=== PATIENT | male | born 1950 | race Caucasian/White ===

== ENCOUNTER 2024-11-12 11:47 | Emergency (ER) | payer OTHER, MEDICARE ==
[~2024-11-12] VITALS: Ht 182.9 cm; Wt 86.2 kg
--- NOTE | 2024-11-12 12:20 | HMCIMG ---
WRIST COMP 3+VWS LT HISTORY: Thumb pain COMPARISON: None TECHNIQUE: 3 images of the left wrist were obtained. FINDINGS: There is no acute displaced fracture or dislocation. Radiocarpal joint space narrowing is seen. Degenerative changes are seen. IMPRESSION: 1. Findings as described above.
--- NOTE | 2024-11-12 12:20 | HMCIMG ---
FINGER(S) 2+VWS LT HISTORY: Pain COMPARISON: None TECHNIQUE: 3 images of the left thumb were obtained. FINDINGS: There is no acute displaced fracture or dislocation. There is soft tissue swelling. Degenerative changes are seen. IMPRESSION: 1. Findings as described above.
--- NOTE | 2024-11-12 12:24 | ERN ---
General Chief Complaint: Hand Problem/Injury Stated Complaint: LEFT HAND INJURY Time Seen by MD: 11:50 Source: patient History of Present Illness Initial Comments PATIENT IS A 74-YEAR-OLD MALE COMING IN TO BE EVALUATED FOR LEFT THUMB PAIN. PATIENT STATES THAT THE PAIN BEGAN A WEEK AGO. HE STATES THAT PROGRESSIVELY HAS BEEN GETTING WORSE. HE WAS HERE FOR FURTHER EVALUATION. HE STATES THAT THE PAIN IS EXACERBATED WITH MOVEMENT. Allergies: Coded Allergies: No Known Drug Allergies (Unverified Allergy, Unknown, 11/12/24) Past Medical History Past Medical History: No Pertinent History Past Surgical History: None ROS Dictation CONSTITUTIONAL: NO CHILLS, NO FEVER, NO WEAKNESS, NO DIAPHORESIS, NO MALAISE. HEAD/FACE: NO SIGNS OF TRAUMA. EENT: NO EYE PAIN, NO BLURRED VISION, NO TEARING, NO DOUBLE VISION, NO EAR PAIN, NO EAR DISCHARGE, NO NOSE PAIN, NO NASAL CONGESTION, NO THROAT PAIN, NO THROAT SWELLING, NO MOUTH PAIN. RESPIRATORY: NO COUGH, NO ORTHOPNEA, NO SOB, NO STRIDOR, NO WHEEZING. CARDIOVASCULAR: NO CHEST PAIN, NO EDEMA, NO PALPITATIONS, NO SYNCOPE. GASTROINTESTINAL/ABDOMINAL: NO ABDOMINAL PAIN, NO CONSTIPATION, NO DIARRHEA, NO NAUSEA, NO VOMITING. GENITOURINARY: NO ABNORMAL DISCHARGE, NO DYSURIA, NO FREQUENT URINATION, NO HEMATURIA. NO COMPLAINTS OF PAIN IN THE GENITALS. MUSCULOSKELETAL: NO BACK PAIN, NO GOUT, JOINT PAIN, JOINT SWELLING, NO MUSCLE PAIN, NO MUSCLE STIFFNESS, NO NECK PAIN. INTEGUMENTARY: NO CHANGE IN COLOR, NO CHANGE IN HAIR/NAILS, NO DRYNESS, NO LESION, NO LUMPS, NO RASH. NEUROLOGICAL/PSYCH: NO ANXIETY, NOT DEPRESSED, NO EMOTIONAL PROBLEM, NO HEADACHE, NO NUMBNESS, NO PRE-EXISTING DEFICIT, NO HISTORY OF SEIZURES, NO TREMORS, NO WEAKNESS. HEMATOLOGIC/LYMPHATIC: NOT ANEMIC, NO HISTORY OF BLOOD CLOTS, NO APPARENT BLEEDING, NO BRUISING, GLANDS NOT SWOLLEN. ALL SYSTEMS NEGATIVE, EXCEPT NOTED. Physical Exam Physical Exam Dictation VITAL SIGNS: REVIEWED. GENERAL APPEARANCE: ALERT, ORIENTED X3, NO ACUTE DISTRESS, OBESE. HEAD AND FACE: NON-TRAUMATIC. EYES: PERRL, PINK CONJUNCTIVAS, EYELID NO TRAUMA, ANTERIOR CHAMBER CLEAR. EARS: PINNAS INTACT AND NO SIGNS OF TRAUMA OR ERYTHEMA. EAR CANALS CLEAR AND NO DISCHARGE. TMS NO ERYTHEMA. NOSE: NO DISCHARGE, NO BLEEDING. OROPHARYNX: MOUTH NORMAL, TEETH NO CARIES, TONGUE PINK. PHARYNX CLEAR, NO ERYTHEMA. TONSILS NO EXUDATES, NO ABSCESSES NOTED. MUCOUS MEMBRANE MOIST. NECK: SUPPLE, NON-TENDER, NO THYROMEGALY, NO MASSES, NO JVD, NO BRUITS. BREAST: DEFERRED. CHEST: NO TENDERNESS, NO CREPITUS, NO PARADOXICAL MOVEMENT, NO RETRACTIONS. LUNGS: CLEAR, WELL-VENTILATED, SYMMETRIC, NO RALES, NO WHEEZING, NO RHONCHI, NO STRIDOR, GOOD BREATH SOUNDS BILATERALLY. HEART: REGULAR RATE, REGULAR RHYTHM, NO MURMUR, NO GALLOPS. VASCULAR: NO PERIPHERAL EDEMA. ABDOMEN: SOFT, POSITIVE BOWEL SOUNDS, NONDISTENDED, NO GUARDING, NONTENDER, NO REBOUND, NO MASSES NO HEPATOMEGALY, NO SPLENOMEGALY, NO TYLER'S SIGN, NO HERNIAS. RECTAL: DEFERRED. GENITAL: DEFERRED. NEUROLOGICAL: NORMAL SPEECH, GROSS MOTOR FUNCTION INTACT, GROSS SENSORY FUNCTION INTACT. MUSCULOSKELETAL: NECK NONTENDER, FULL RANGE OF MOTION, BACK NONTENDER, FULL RANGE OF MOTION. EXTREMITIES: NONTENDER, FULL RANGE OF MOTION. LEFT HAND 1ST DIGIT TENDERNESS AT THE BASE ON PALPATION MILD SWELLING, ECCHYMOSIS, SKIN: COLOR PINK, DRY, NO TURGOR, NO RASH, NO LACERATIONS, NO ABRASIONS, NO CONTUSIONS. LYMPHATICS: DEFERRED. Results Laboratory and Microbiology Labs Reviewed?: Yes EKG/XRAY/US/CT/MRI X-RAY Comment [place] [address] [place] [id number] IMAGING REPORT Signed PATIENT: SERINA VAZQUEZ MR#: [id number] : 1950 SEX: M AGE: 74 LOCATION: ED ORDER 1154 STATUS: REG REPORT#: [id number] SERVICE 1152 REASON: THUMB PAIN ORDERING PHYSICIAN: GASPER FISH MD PROCEDURE: FINGER LT - FINGER(S) 2+VWS LT FINGER(S) 2+VWS LT HISTORY: Pain COMPARISON: None TECHNIQUE: 3 images of the left thumb were obtained. FINDINGS: There is no acute displaced fracture or dislocation. There is soft tissue swelling. Degenerative changes are seen. IMPRESSION: 1. Findings as described above. DICTATED BY: JUAN MATIAS MD DATE: 11/12/241216 ELECTRONICALLY SIGNED BY: JUAN MATIAS MD DATE: 11/12/24 122 [facility] [address] [place] [address] IMAGING REPORT Signed PATIENT: SERINA VAZQUEZ MR#: [id number] : 1950 SEX: M AGE: 74 LOCATION: EDH ORDER 1154 STATUS: [facility] REPORT#: [id number] SERVICE 115 REASON: THUMB PAIN ORDERING PHYSICIAN: GASPER FISH MD PROCEDURE: WRST 3V LT - WRIST COMP 3+VWS LT WRIST COMP 3+VWS LT HISTORY: Thumb pain COMPARISON: None TECHNIQUE: 3 images of the left wrist were obtained. FINDINGS: There is no acute displaced fracture or dislocation. Radiocarpal joint space narrowing is seen. Degenerative changes are seen. IMPRESSION: 1. Findings as described above. DICTATED BY: JUAN MATIAS MD DATE: 11/12/241216 ELECTRONICALLY SIGNED BY: JUAN MATIAS MD DATE: 11/12/24 1220 [facility] MDM: DIFFERENTIAL DIAGNOSIS: PHALANX FRACTURE, SCAPHOID FRACTURE, RATIONALE: TESTS CONSIDERED AND ORDERED SECONDARY TO SHARED DECISION MAKING INCLUDE: PREVIOUS OUTSIDE RECORDS REVIEWED: OLD ER VISITS. RISK OF COMPLICATION AND/OR MORBIDITY OR MORTALITY OF PATIENT MANAGEMENT: NONE MEDICATIONS-PER MEDICATION RECONCILIATION NEED FOR HOSPITALIZATION: PATIENT DOES NOT MEET CRITERIA FOR HOSPITALIZATION. PATIENT IS A 74-YEAR-OLD MALE COMING IN TO BE EVALUATED FOR LEFT HAND PAIN. ON PHYSICAL EXAM THERE IS TENDERNESS TO THE ANATOMICAL SNUFFBOX WELL THE BASE OF THE 1ST DIGIT. X-RAY DID NOT DISCLOSE ACUTE FINDINGS BUT THUMB SPICA WAS PLACED. PATIENT WAS ADVISED APPROPRIATE FOLLOW UP WITH MANAGER PHYSICAL IN 1-2 DAYS FOR ONGOING EVALUATION AND MANAGEMENT. ED Course Orders Procedure Category Date Status Time Thumb Spica SHAY.ER 11/12/24 In Process 11:52 Finger(S) 2+Vws Lt RAD 11/12/24 Resulted 11:52 Wrist Comp 3+Vws Lt RAD 11/12/24 Resulted 11:52 Vital Signs Date Time Temp Pulse Resp B/P (MAP) Pulse Ox O2 Delivery O2 Flow Rate FiO2 11/12/24 11:52 98.1 104 16 126/83 100 Room Air DX & DISP Disposition: Discharge Departure Impression: Primary Impression: Thumb fracture Additional Impression: Scaphoid fracture Condition: Stable Scripts Naproxen (Naproxen) 500 Mg Tablet 1 TAB PO BID for pain for 7 Days, #14 TAB 0 Refills Prov: GASPER FISH MD 11/12/24 Additional Instructions: FOLLOW-UP WITH PRIMARY CARE PROVIDER IN 1 TO 2 DAYS. TAKE MEDICATIONS DIRECTED HERE IN THE EMERGENCY ROOM. OKAY TO CONTINUE HOME MEDICATIONS UNLESS OTHERWISE DISCUSSED DURING YOUR VISIT IN THE EMERGENCY ROOM TODAY. RETURN TO YOUR NEAREST EMERGENCY ROOM IF SYMPTOMS WORSEN OR IF THERE IS NO IMPROVEMENT. CALL 911 IF YOU NEED IMMEDIATE ASSISTANCE. TAKE TYLENOL [id number] NEEDED AND IF NO CONTRAINDICATIONS ARE PRESENT. INCREASE ORAL HYDRATION. A WOUND CULTURE OR URINE CULTURE WAS ORDERED HERE IN THE EMERGENCY ROOM DEPARTMENT PLEASE FOLLOW-UP WITH PRIMARY CARE PROVIDER AND ADVISE THEM TO GET REPEAT PORTS FROM OUR FACILITY. IF YOU HAD ANY ROSS WRAP/SPLINTS THAT WERE APPLIED HERE, PLEASE DO NOT REMOVE THEM UNTIL YOU SEE YOUR PRIMARY CARE OR SPECIALTY. REFERRALS: Referrals: SELF,REFERRAL (PCP) ADELINE MORENO MD, LUIS A MD Time of Disposition: 12:26 GASPER FISH MD November 12, 2024 12:24
[2024-11-12] MEDS ORDERED: NAPR-1194 PO (12:27)
[2024-11-12 12:49] VITALS: BP 121/79; PULSE 90; RESP 16; TEMP 98.1; O2SAT 100
== END 2024-11-12 12:52 | disposition home or self-care (01) ==
LOC: EDH 11:47
DX: S62.502A Fracture of unspecified phalanx of left thumb, initial encounter for closed fracture (principal); S62.002A Unspecified fracture of navicular [scaphoid] bone of left wrist, initial encounter for closed fracture; X58.XXXA Exposure to other specified factors, initial encounter; Y93.89 Activity, other specified; Y92.89 Other specified places as the place of occurrence of the external cause; Y99.8 Other external cause status
CPT/HCPCS: 29105; 29125; 73110; 73140; 99284

== ENCOUNTER 2024-12-25 11:22 | Emergency (ER) | payer OTHER, MEDICARE ==
[~2024-12-25] VITALS: Ht 182.9 cm; Wt 86.2 kg
[~2024-12-25 11:22] MED LIST: NAPR-1194 PO
--- NOTE | 2024-12-25 11:51 | ERN ---
ED Note History of Present Illness Stated Complaint: RT EYE VISUAL LOSS Chief Complaint: Eye Problems Time Seen by MD: 11:28 Dictation: PATIENT IS A 74-YEAR-OLD MALE HERE WITH COMPLAINTS OF SUDDEN VISION LOSS 45-50 MINUTES AGO WHILE HE WAS LYING ON THE COUCH WATCHING TV. HE STATES VISION WENT BLACK TO HIS RIGHT EYE FOR 5 MINUTES AND THEN CAME BACK AND WAS RESTORED COMPLETELY. CURRENTLY STATES HIS VISION IS INTACT, HE IS WEARING CORRECTIVE LENSES. NIH IS 0. HE DENIES ANY HISTORY OF CANCER, TUMORS, EYE SURGERIES, HEADACHE. Allergies: Coded Allergies: No Known Drug Allergies (Unverified Allergy, Unknown, 11/12/24) Home Meds Active Scripts Naproxen (Naproxen) 500 Mg Tablet, 1 TAB PO BID for pain for 7 Days, #14 TAB 0 Refills Prov:GASPER FISH MD 11/12/24 Past Medical History Past Medical History: GERD, High Cholesterol, Hypertension Surgical History: None RN Note Reviewed/Agreed w/PFSH: Yes Review of System Dictation CONSTITUTIONAL: NEGATIVE EXCEPT FOR HPI HEAD/FACE: NEGATIVE EXCEPT FOR HPI EENT: NEGATIVE EXCEPT FOR HPI SUDDEN VISION LOSS RIGHT EYE RESPIRATORY: NEGATIVE EXCEPT FOR HPI GASTROINTESTINAL/ABDOMINAL: NEGATIVE EXCEPT FOR HPI GENITOURINARY: NEGATIVE EXCEPT FOR HPI MUSCULOSKELETAL: NEGATIVE EXCEPT FOR HPI INTEGUMENTARY: NEGATIVE EXCEPT FOR HPI NEUROLOGICAL/PSYCH: NEGATIVE EXCEPT FOR HPI HEMATOLOGIC/LYMPHATIC: NEGATIVE EXCEPT FOR HPI ALL SYSTEMS NEGATIVE, EXCEPT NOTED ABOVE. 13 POINT REVIEW OF SYSTEMS ASSESSED AND ALL NEGATIVE EXCEPT FOR ABOVE. Initial Vital Sign VS Vital Signs Date Time Temp Pulse Resp B/P (MAP) Pulse Ox O2 Delivery O2 Flow Rate FiO2 12/25/24 11:25 97.9 99 18 143/86 97 Room Air 0 12/25/24 12:00 21 Physical Exam Dictation VITAL SIGNS REVIEWED GENERAL APPEARANCE: ALERT, ORIENTED X 3, NO ACUTE DISTRESS, WELL DEVELOPED, NOURISHED. HEAD AND FACE: NON-TRAUMATIC. EYES: PERRL, PINK CONJUNCTIVAS, EYELID NO TRAUMA, ANTERIOR CHAMBER WITH ARCUS SENILIS. EOMS INTACT PATIENT WEARS CORRECTIVE LENSES EARS: PINNAS INTACT AND NO SIGNS OF TRAUMA OR ERYTHEMA EAR CANALS CLEAR AND NO DISCHARGE TM NO ERYTHEMA NOSE: NO DISCHARGE, NO BLEEDING. OROPHARYNX: MOUTH NORMAL, TONGUE PINK, PHARYNX CLEAR,NO ERYTHEMA, TONSILS NO EXUDATES, NO ABSCESSES NOTED, MUCOUS MEMBRANE MOIST NECK: SUPPLE, NON-TENDER, NO THYROMEGALY, NO MASSES, NO JVD, NO BRUITS BREAST:DEFERRED CHEST:NO TENDERNESS, NO CREPITUS, NO PARADOXICAL MOVEMENT, NO RETRACTIONS LUNGS:CLEAR, WELL-VENTILATED, SYMMETRIC, NO RALES, NO WHEEZING, NO RHONCHI, NO STRIDOR, GOOD BREATH SOUNDS BILATERALLY HEART: REGULAR RATE, REGULAR RHYTHM, NO MURMUR, NO GALLOPS VASCULAR: NO PERIPHERAL EDEMA, ABDOMEN: SOFT, POSITIVE BOWEL SOUNDS, NONDISTENDED, NO GUARDING, NONTENDER, NO REBOUND, NO MASSES NO HEPATOMEGALY, NO SPLENOMEGALY, NO TYLER'S SIGN, NO HERNIAS. RECTAL: DEFERRED GENITAL: DEFERRED NEUROLOGICAL: NORMAL SPEECH, MOTOR FUNCTION INTACT, SENSORY FUNCTION INTACT MUSCULOSKELETAL: NECK NONTENDER, FULL RANGE OF MOTION, BACK NONTENDER, FULL RANGE OF MOTION, EXTREMITIES: NONTENDER, FULL RANGE OF MOTION SKIN: COLOR PINK, DRY, NO TURGOR, NO RASH, NO LACERATIONS, NO ABRASIONS, NO CONTUSIONS. LYMPHATIC: DEFERRED Results (Laboratory/Radiology) Laboratory/Radiology Laboratory Tests Test 12/25/24 11:52 White Blood Count 6.3 K/uL (4.8-10.8) Red Blood Count 4.27 MIL/uL (4.50-6.20) L Hemoglobin 14.8 g/dL (14.0-18.0) Hematocrit 42.8 % (42-54) Mean Corpuscular Volume 100.2 fL (79-99) H Mean Corpuscular Hemoglobin 34.7 pg (27.0-33.0) H Mean Corpuscular Hemoglobin Concent 34.6 g/dL (32.0-36.0) Red Cell Distribution Width 15.8 % (11.0-15.5) H Platelet Count 266 K/uL (130-400) Mean Platelet Volume 10.2 fL (7.5-10.5) Immature Granulocyte % (Auto) 0.2 % (0-1) Neutrophils (%) (Auto) 63.0 % (40.0-77.0) Lymphocytes (%) (Auto) 26.5 % (21.0-51.0) Monocytes (%) (Auto) 7.6 % (3.0-13.0) Eosinophils (%) (Auto) 2.1 % (0.0-8.0) Basophils (%) (Auto) 0.6 % (0.0-5.0) Neutrophils # (Auto) 4.0 K/uL (1.8-7.7) Lymphocytes # (Auto) 1.7 K/uL (1.0-4.8) Monocytes # (Auto) 0.5 K/uL (0.1-1.0) Eosinophils # (Auto) 0.13 K/uL (0.00-0.70) Basophils # (Auto) 0.04 K/uL (0.00-0.20) Absolute Immature Granulocyte (auto 0.01 K/uL (0-1) Nucleated Red Blood Cells 0.0 % (0.0-0.19) Prothrombin Time 10.9 SEC (9.6-11.6) Prothromb Time International Ratio 1.03 (0.85-1.15) Activated Partial Thromboplast Time 28.5 SEC (26.3-35.5) Sodium Level 137 mmol/L (136-145) Potassium Level 4.1 mmol/L (3.5-5.1) Chloride Level 100 mmol/L (101-111) L Carbon Dioxide Level 29 mmol/L (21-32) Blood Urea Nitrogen 8 mg/dL (7-18) Creatinine 0.9 mg/dL (0.5-1.3) Glomerular Filtration Rate Calc 91 mL/min (>90) Random Glucose 112 mg/dL (70-105) H Total Calcium 9.5 mg/dL (8.5-10.1) Troponin I High Sensitivity 5 ng/L (4-75) CT HEAD/BRAIN W/O CONTRAST HISTORY: Sudden loss of vision COMPARISON: None TECHNIQUE: Multiple sequential axial images of the head were obtained from the base of the skull through vertex. Patient was not given contrast through intravenous route. FINDINGS: The ventricles and extraventricular CSF spaces are dilated consistent with cerebral atrophy. Nonspecific white matter changes seen. There is no midline shift, mass effect or herniation. No acute intracranial bleed is seen. Visualized portion of the paranasal sinuses are grossly within normal limits. IMPRESSION: 1. No acute intracranial bleed is seen. 2. Atrophy with white matter changes. COMPARISON: None TECHNIQUE: CT angiography of the head was performed. The study was performed using angiographic technique with maximum intensity projection reconstruction images. Patient was given 75 cc of Omnipaque through intravenous route. FINDINGS: The ventricles and extraventricular CSF spaces are nondilated for patient's age. There is no midline shift, mass effect or herniation. No acute intracranial bleed is seen. Visualized portion of the paranasal sinuses are grossly within normal limits. No CT evidence of cerebral aneurysm or abnormal arteriovenous communication is seen. Diffuse atherosclerosis changes are present. Vertebrobasilar arterial system is grossly within normal limits. IMPRESSION: CTA Head 1. Atherosclerotic disease. Otherwise unremarkable CTA of the brain. TECHNIQUE: CT angiography of the neck was performed. The study was performed using angiographic technique with maximum intensity projection reconstruction images. FINDINGS: There are degenerative changes of the cervical spine. Parapharyngeal fat planes are preserved bilaterally. The airway is patent. Normal enhancement of the thyroid gland is noted. Visualized portion of the lung apices are unremarkable. The common, internal and external carotid arteries are visualized. No hemodynamically significant lesion is seen of either extracranial carotid artery system. Both vertebral arteries are seen with antegrade flow. IMPRESSION: CTA Neck 1. Atherosclerotic disease. No hemodynamically significant lesion is seen of either extracranial carotid artery system. Labs Reviewed?: Yes EKG Comment: EKG SINUS RHYTHM/HEART RATE 74/PROLONGED NH WITH NH 213 MILLISECONDS. AXIS IS NORMAL NO ECTOPY ED Course ED Course Orders Procedure Category Date Status Time Cbc With Differential LAB 12/25/24 Complete 11:44 Troponin I High LAB 12/25/24 Complete Sensitivity 11:44 12 Lead Ekg Tracing- EKG 12/25/24 Resulted Technical 11:44 Basic Metabolic Panel LAB 12/25/24 Complete 11:44 Ct Head/Brain W/O CT 12/25/24 Resulted Contrast 11:44 Pt And Ptt LAB 12/25/24 Complete 11:44 Visual Acuity Test CPOE 12/25/24 Transmitted (Er) 11:51 [place] Prov. Neuro CONPHYSVC 12/25/24 Transmitted Consult 12:02 Ct Angio Head And Neck CT 12/25/24 Resulted 14:50 Iohexol (Omnipaque) PHA 12/25/24 Complete 15:13 Current Medications Medications (Trade) Dose Ordered Sig/Breana Route PRN Reason Start Time Stop Time Status Last Admin Dose Admin Iohexol (Omnipaque) 75 ml STK-MED ONCE IV 12/25/24 15:13 12/25/24 15:13 DC Vital Signs Date Time Temp Pulse Resp B/P (MAP) Pulse Ox O2 Delivery O2 Flow Rate FiO2 12/25/24 16:25 98.1 65 19 122/70 97 Room Air* 0 21 12/25/24 14:50 98.1 65 19 127/69 100 Room Air* 0 21 12/25/24 14:00 98.1 68 16 128/84 97 Room Air* 0 21 12/25/24 13:00 98.1 70 16 110/70 98 Room Air* 0 21 12/25/24 12:00 98.2 80 16 116/69 98 Room Air* 0 12/25/24 11:25 97.9 99 18 143/86 97 Room Air 0 1202/SCC ORDERED TO EVALUATE PATIENT 1410/PATIENT REMAINS NEUROLOGICALLY INTACT, VISION IS INTACT. VISUAL ACUITY CHECKED BY DIAMOND SETTER APPRENTICE, LEFT EYE 20/25, RIGHT EYE 20/25, BOTH EYES 2024 CORRECTED 143/CALLED [facility] TELEMED NUMBER AT AREA CODE [phone] AND SPOKE WITH ERNIE. LEFT HER A MESSAGE TO HAVE /NEUROLOGISTS CALL ME BACK SINCE THE CAT SCAN RESULTS ARE IN FOR THE BRAIN PATIENT REMAINS NEUROLOGICALLY INTACT NO VISUAL DEFICITS ACTUALLY INDICATES HE WANTS TO GO HOME.1450/ 1450/spoke with /tele radiologist. She strongly recommended that we perform CT angio graft of the neck and head now to rule out carotid stenosis. She said if that is okay that we could send patient home to follow up outpatient. I spoke with patient at length and advised him that we could perform this and it may indicate a transfer to another facility for higher level of care. He did not want to be transferred this this time however he stated he would be willing to stay for angiography of the neck and brain. 1625/1625/PATIENT WILL BE DISCHARGED HOME WITH HIS . HE IS MADE AWARE THAT CT, CT ANGIO IS NEGATIVE NO ATHEROSCLEROTIC DISEASE SIGNIFICANT THE CAUSED THE VISION CHANGES. WORKUP IS NEGATIVE AND THERE IS NO EXPLANATION FOR HIS TRANSIENT VISION CHANGE. HE SAYS IN THE APPOINTMENT TOMORROW AT THE [facility] FOR FOLLOW UP AND HE WILL SEE A DOCTOR THERE. HEART Score Response (Comments) Value EKG: Repolarization changes 1 Age: > 65yrs (+2) 2 Risk Factors: 1-2 risk factors (+1) 1 Initial Troponin: Normal limit (0) 0 Total 4 Medical Decision Making MDM MDM: DIFFERENTIAL DIAGNOSIS: ATHEROSCLEROTIC DISEASE, CAROTID STENOSIS, CVA, ACUTE VISION CHANGES, TIA. ARRHYTHMIA RATIONALE: TESTS CONSIDERED AND ORDERED SECONDARY TO SHARED DECISION MAKING INCLUDE: RADIOLOGY/LABS/EKG PREVIOUS OUTSIDE RECORDS REVIEWED: OLD ER VISITS. RISK OF COMPLICATION AND/OR MORBIDITY OR MORTALITY OF PATIENT MANAGEMENT: NONE MEDICATIONS-PER MEDICATION RECONCILIATION NEED FOR HOSPITALIZATION: PATIENT DOES NOT MEET CRITERIA FOR HOSPITALIZATION. PATIENT REFUSES TRANSFER OR ADMISSION AT BEDSIDE AND SHE AGREES. NEED FOR EMERGENCY MAJOR/MINOR SURGERY: NO THERE ARE NO SOCIAL CONCERNS WITH THIS PATIENT. PRESCRIPTION DRUG MANAGEMENT NONE PRESCRIPTIONS WILL INCLUDE SYMPTOMATIC CARE PATIENT'S PRIOR EXTERNAL MEDICAL RECORDS FROM OTHER ER VISITS WERE REVIEWED BY ME INDICATED. PRIOR TESTING AND RESULTS FROM PREVIOUS VISITS WERE REVIEWED. PRIOR TESTS WERE TAKEN INTO ACCOUNT WITH MEDICAL DECISION MAKING AND RESOURCE UTILIZATION, INDEPENDENT HISTORIAN/HISTORIANS WERE USED TO OBTAIN COMPLETE MEDICAL HISTORY. I INDEPENDENTLY INTERPRETED THE TEST THAT WERE PERFORMED, RESULTS WERE REVIEWED BY ME AND CONSIDERED FINDINGS ON RADIOLOGY IF ORDERED. MEDICAL MANAGEMENT AND EXAMINATION INTERPRETATION DISCUSSIONS WERE HAD BY ME WITH OTHER QUALIFIED HEALTHCARE PROFESSIONALS INDICATED FOR THE PATIENT'S CARE. DX & DISP Disposition: Discharge Departure Impression: Primary Impression: Transient visual loss of right eye Condition: Stable Additional Instructions: FOLLOW-UP WITH PRIMARY CARE PROVIDER IN 1 TO 2 DAYS. TAKE MEDICATIONS DIRECTED HERE IN THE EMERGENCY ROOM. OKAY TO CONTINUE HOME MEDICATIONS UNLESS OTHERWISE DISCUSSED DURING YOUR VISIT IN THE EMERGENCY ROOM TODAY. RETURN TO YOUR NEAREST EMERGENCY ROOM IF SYMPTOMS WORSEN OR IF THERE IS NO IMPROVEMENT. CALL 911 IF YOU NEED IMMEDIATE ASSISTANCE. TAKE TYLENOL OR MOTRIN RTNM-IYO-ZOZTABO NEEDED AND IF NO CONTRAINDICATIONS ARE PRESENT. INCREASE ORAL HYDRATION. A WOUND CULTURE OR URINE CULTURE WAS ORDERED HERE IN THE EMERGENCY ROOM DEPARTMENT PLEASE FOLLOW-UP WITH PRIMARY CARE PROVIDER AND ADVISE THEM TO GET REPEAT PORTS FROM OUR FACILITY. IF YOU HAD ANY ROSS WRAP/SPLINTS THAT WERE APPLIED HERE, PLEASE DO NOT REMOVE THEM UNTIL YOU SEE YOUR PRIMARY CARE OR SPECIALTY. DIET AND ACTIVITY TOLERATED, FOLLOW UP WITH YOUR DOCTOR AT THE [facility] IN ONE TWO DAYS FOR MANAGEMENT. Referrals: ARRON ROSS (PCP) Time of Disposition: 16:30 I have reviewed the case, and I agree with, Diagnosis and Plan DINA GALLADRO NP Dec 25, 2024 11:51
[2024-12-25 12:03] LABS: BASOPHILS # (AUTO) 0.04 K/uL (0.00-0.20); BASOPHILS % (AUTO) 0.6 % (0.0-5.0); EOSINOPHILS # (AUTO) 0.13 K/uL (0.00-0.70); EOSINOPHILS % (AUTO) 2.1 % (0.0-8.0); HEMATOCRIT 42.8 % (42-54); IMMATURE GRANULOCYTE ABSOLUTE 0.01 K/uL (0-1); LYMPHOCYTES # (AUTO) 1.7 K/uL (1.0-4.8); LYMPHOCYTES % (AUTO) 26.5 % (21.0-51.0); MEAN CORPUSCULAR HEMOGLOBIN 34.7 pg (27.0-33.0); MEAN CORPUSCULAR HGB CONC 34.6 g/dL (32.0-36.0); MEAN CORPUSCULAR VOLUME 100.2 fL (79-99); MONOCYTES # (AUTO) 0.5 K/uL (0.1-1.0); MONOCYTES % (AUTO) 7.6 % (3.0-13.0); PLATELET COUNT (AUTO) 266 K/uL (130-400); RED BLOOD CELL COUNT(AUTO) 4.27 MIL/uL (4.50-6.20); RED CELL DISTRIBUTION WIDTH 15.8 % (11.0-15.5); WHITE BLOOD COUNT (AUTO) 6.3 K/uL (4.8-10.8)
[2024-12-25 12:14] LABS: CREATININE 0.9 mg/dL (0.5-1.3); POTASSIUM 4.1 mmol/L (3.5-5.1)
--- NOTE | 2024-12-25 12:14 | EKG ---
[facility] Test Date: 2024-12-25 Test Time: 12:10:41 Pat Name: SERINA VAZQUEZ Department: ED Room: Gender: M Road Maker: [facility] : 1950 Requested By: DINA GALLARDO Order Number: [id number] Reading MD: Berry Bryant Measurements Intervals [place] Rate: 74 P: 47 DC: 213 QRS: 56 QRSD: 77 T: 31 QT: 361 QTc: 401 Interpretive Statements Sinus rhythm Borderline prolonged DC interval Low voltage, extremity leads No previous ECG available for comparison Electronically Signed On 12-25-2024 14:45:09 CDT by Berry Bryant Please click the below link to view image of tracing.
[2024-12-25 12:15] LABS: INR 1.03 (0.85-1.15); PROTHROMBIN TIME 10.9 SEC (9.6-11.6)
[2024-12-25 12:17] LABS: PARTIAL THROMBOPLASTIN TIME 28.5 SEC (26.3-35.5)
--- NOTE | 2024-12-25 14:12 | HMCIMG ---
CT HEAD/BRAIN W/O CONTRAST HISTORY: Sudden loss of vision COMPARISON: None TECHNIQUE: Multiple sequential axial images of the head were obtained from the base of the skull through vertex. Patient was not given contrast through intravenous route. FINDINGS: The ventricles and extraventricular CSF spaces are dilated consistent with cerebral atrophy. Nonspecific white matter changes seen. There is no midline shift, mass effect or herniation. No acute intracranial bleed is seen. Visualized portion of the paranasal sinuses are grossly within normal limits. IMPRESSION: 1. No acute intracranial bleed is seen. 2. Atrophy with white matter changes. CT was performed with one or more following dose reduction techniques: automated exposure control, adjustment of the mA and kv according to patient's size, or use of a iterative reconstruction technique.
[2024-12-25] MEDS ORDERED: IOHEXOL-350 75 ML VIAL IV ONE (15:13)
--- NOTE | 2024-12-25 16:13 | HMCIMG ---
CT ANGIO HEAD AND NECK HISTORY: Acute visual loss of right COMPARISON: None TECHNIQUE: CT angiography of the head was performed. The study was performed using angiographic technique with maximum intensity projection reconstruction images. Patient was given 75 cc of Omnipaque through intravenous route. FINDINGS: The ventricles and extraventricular CSF spaces are nondilated for patient's age. There is no midline shift, mass effect or herniation. No acute intracranial bleed is seen. Visualized portion of the paranasal sinuses are grossly within normal limits. No CT evidence of cerebral aneurysm or abnormal arteriovenous communication is seen. Diffuse atherosclerosis changes are present. Vertebrobasilar arterial system is grossly within normal limits. IMPRESSION: CTA Head 1. Atherosclerotic disease. Otherwise unremarkable CTA of the brain. TECHNIQUE: CT angiography of the neck was performed. The study was performed using angiographic technique with maximum intensity projection reconstruction images. FINDINGS: There are degenerative changes of the cervical spine. Parapharyngeal fat planes are preserved bilaterally. The airway is patent. Normal enhancement of the thyroid gland is noted. Visualized portion of the lung apices are unremarkable. The common, internal and external carotid arteries are visualized. No hemodynamically significant lesion is seen of either extracranial carotid artery system. Both vertebral arteries are seen with antegrade flow. IMPRESSION: CTA Neck 1. Atherosclerotic disease. No hemodynamically significant lesion is seen of either extracranial carotid artery system. CT was performed with one or more following dose reduction techniques: automated exposure control, adjustment of the mA and kv according to patient's size, or use of a iterative reconstruction technique.
[2024-12-25 16:25] VITALS: BP 122/70; PULSE 65; RESP 19; TEMP 98; O2SAT 97
== END 2024-12-25 16:35 | disposition home or self-care (01) ==
LOC: EDH 11:22
DX: H53.121 Transient visual loss, right eye (principal); E78.00 Pure hypercholesterolemia, unspecified; I10 Essential (primary) hypertension; K21.9 Gastro-esophageal reflux disease without esophagitis
CPT/HCPCS: 99285; 70450; 84484; 80048; 85025; 85610; 85730; 36415; 70496; 70498; 93005; Q9967